=== PATIENT | male | born 1970 | race Caucasian/White ===

== ENCOUNTER 2020-10-19 04:31 | Inpatient (IN) | payer OTHER, SELFPAY ==
[2020-10-19] VITALS (12 sets, daily range): BP systolic 168–203; BP diastolic 85–109; PULSE 81–105; RESP 15–22; TEMP 36.4–37.2; O2SAT 89–98; BMI 35.7
--- NOTE | ~2020-10-19 | US_ITS ---
EXAMINATION: ABDOMINAL ULTRASOUND LIMITED CLINICAL INFORMATION: Right upper quadrant pain. COMPARISON: Same day abdominal and pelvic CT. TECHNIQUE: Real-time imaging of the right upper quadrant abdominal viscera. FINDINGS: PANCREAS: The visualized pancreatic head and body are normal in appearance. The remainder of the pancreas is obscured from visualization by the overlying bowel gas. LIVER: The liver is of increased size and diffuse increased echogenicity without focal lesions nor intrahepatic biliary ductal dilation. GALLBLADDER: Normal. The gallbladder is physiologically distended without evidence of stones, sludge, polyps, wall thickening or pericholecystic fluid. COMMON BILE DUCT: Normal in caliber measuring 0.5 cm in diameter. RIGHT KIDNEY: Normal. No hydronephrosis. No renal calculi or focal parenchymal lesions. The kidney measures 11.8 cm in maximum dimension. FREE FLUID: None. US/US abdomen limited IMPRESSION: Liver of diffuse increased echogenicity without focal lesions. The appearance is nonspecific, but consistent with fatty infiltration. Neither cholelithiasis nor cholecystitis.
--- NOTE | ~2020-10-19 | CT_ITS ---
EXAMINATION: CT ABDOMEN AND PELVIS WITH CONTRAST CLINICAL INFORMATION: Worsening pancreatitis. COMPARISON: None TECHNIQUE: Multidetector volumetric images were obtained from the superior aspect of the liver through the pubic symphysis following administration 85 mL of Omnipaque 350 intravenous contrast. Sagittal and coronal reformatted images were obtained on the technologist's workstation. Oral contrast: No This CT examination was performed using dose optimization techniques as appropriate, variously including the following: *Automated exposure control *Adjustment of mA and/or kV according to patient size (this includes techniques or standardized protocols for targeted exams where dose is matched to indication/reason for exam; i.e. extremities or head) *Use of iterative reconstruction technique DLP: 869 mGy-cm FINDINGS: LUNG BASES: Minimal atelectatic changes are seen in the left lung base. Heart size is normal. LIVER, GALLBLADDER, AND BILIARY TREE: The liver is normal in size, shape, and diffuse hypoattenuation. No focal hepatic lesion or biliary ductal dilatation is present. The gallbladder is unremarkable with no evidence of radiopaque gallstones, gallbladder wall thickening, or obvious pericholecystic inflammatory changes. PANCREAS: The pancreas is normal size and density. There is peripancreatic haziness consistent with acute pancreatitis, most prominent along the head and the body of the pancreas. The common bile duct is dilated at the head of the pancreas measuring 1.4 cm. The proximal pancreatic duct along the body of the pancreas is dilated. There is mild prominence of pancreatic duct but no dilatation seen. There is a hypoechoic 1.2 cm lesion with surrounding inflammatory process, question small loculated cyst on axial image 34/3. There is moderate soft tissue density anterior to the body of the pancreas, likely a focal inflammatory fluid collection on axial image 37/3. There is perisplenic and perihepatic fluid collection. The perihepatic fluid collection has increased and is more prominent along the medial free edge of the right hepatic lobe image 41/3. It appears new. SPLEEN: Fluid surrounding spleen has also increased slightly. ADRENAL GLANDS: Unremarkable KIDNEYS AND URETERS: The kidneys are normal in size, shape, and attenuation. No hydronephrosis, hydroureter, or calculi seen. No perinephric stranding. There is a 1.1 cm cyst lower pole right kidney. BLADDER: Unremarkable GASTROINTESTINAL TRACT: The small and large bowel are unremarkable. The appendix is unremarkable. There is increased fluid in the abdomen, mesentery and in the pelvis. ABDOMINAL WALL: No significant hernia is appreciated. LYMPH NODES: Normal VASCULAR: Unremarkable PELVIC VISCERA: Unremarkable OSSEOUS STRUCTURES: Unremarkable CT/CT abdomen pelvis w con IMPRESSION: Acute pancreatitis. There is interval increased free fluid in the pelvis, perihepatic region and in the mesentery. No suggestion for pancreatic necrosis. Diffuse fatty infiltration of liver without any focal lesion.
--- NOTE | ~2020-10-19 | CT_ITS ---
EXAMINATION: CT ABDOMEN AND PELVIS WITH CONTRAST CLINICAL INFORMATION: Diffuse abdominal pain. COMPARISON: None. TECHNIQUE: Contiguous axial thin section helical images of the abdomen and pelvis were performed following the administration of 85 mL of intravenous Omnipaque 350. The data set was reformatted in the coronal and sagittal planes and reviewed on an independent workstation. DLP: 824 mGy-cm. FINDINGS: The visualized lung bases are clear. The visualized portions of the heart are unremarkable. The liver is of increased size and diffuse decreased attenuation without focal lesions nor intrahepatic biliary ductal dilation. A normal gallbladder is identified. There is no wall thickening or discernible pericholecystic fluid. The spleen and adrenal glands are unremarkable. There is trace free fluid about the distal body and tail of the pancreas along with fat stranding. There is fullness of the pancreatic head, neck, body and tail. There is mild fat stranding noted about the pancreatic head and neck. Both kidneys are of normal size and attenuation without hydronephrosis or nephrolithiasis. Following the administration of IV contrast, prompt symmetric nephrograms are displayed. There is a small amount of free fluid within the right lower quadrant. There is neither mesenteric nor retroperitoneal lymphadenopathy. Normal unopacified loops of small and large bowel are identified. There is a small amount of pelvic free fluid. The urinary bladder is unremarkable. There is neither pelvic nor inguinal lymphadenopathy. Bone windows: Neither sclerotic nor lytic bone lesions are identified. CT/CT abdomen pelvis w con IMPRESSION: Inflammatory changes and trace free fluid about the pancreas suggestive of pancreatitis. Correlate with laboratory values. Hepatomegaly and hepatic steatosis. Small amount of abdominal and pelvic free fluid. Automated exposure control (Care Dose) Adjustment of the mA and/or kv according to patient size (this includes techniques or standardized protocols for targeted exams where dose is matched to indication / reason for exam; i.e. extremities or head).
--- NOTE | 2020-10-19 04:45 | ECG_ITS ---
Test Reason : ABD PAIN Blood Pressure : / mmHG Vent. Rate : 101 BPM Atrial Rate : 101 BPM P-R Int : 118 ms QRS Dur : 086 ms QT Int : 418 ms P-R-T Axes : 066 -05 009 degrees QTc Int : 542 ms Sinus tachycardia with occasional Premature ventricular complexes Prolonged QT Abnormal ECG No previous ECGs available Referred By: Yoly Camargo Electronically Signed By:SCOTT ROCHA
--- NOTE | 2020-10-19 04:52 | ED.ABDPAIN ---
HPI - Abdominal Pain General Chief Complaint: Abdominal Pain Stated Complaint: Abdominal Pain Time Seen by Provider: 10/19/20 04:45 Source: patient Mode of arrival: ambulatory History of Present Illness HPI narrative: This is a 50-year-old male with history of alcohol and drug use who presents after 2 weeks worsening mid abdominal pain with chills, ?sweats?, nausea/vomiting, but continues to have bowel movements and pass flatus and denies any history of abdominal surgeries. Patient states that he ?cannot take the pain anymore . Otherwise, he denies any urinary pain/burning/frequency. Related Data Allergies Allergy/AdvReac Type Severity Reaction Status Date / Time No Known Allergies Allergy Verified 10/19/20 04:55 [No Known Allergies*] Review of Systems Review of Systems Pertinent positives and negatives as stated in HPI 10 point review of systems is otherwise negative. Physical Exam Vital Signs: Vital Signs: Last Vital Signs Temp 98.3 F 10/19/20 05:41 Pulse 105 H 10/19/20 05:58 Resp 17 10/19/20 05:58 BP 174/98 H 10/19/20 05:58 Pulse Ox 97 10/19/20 05:58 Body Mass Index 35.7 VITAL SIGNS: Reviewed. GENERAL: Well developed, well nourished, mild distress, diaphoretic. HEAD: Normocephalic/atraumatic, EYES: PERRLA, EOMI NOSE: Nares patent bilateral OROPHARYNX: no oral lesions noted, posterior pharynx clear NECK: Supple, no adenopathy LUNGS: Normal breath sounds. No adventitious sounds or accessory muscle use. SpO2<98> CARDIOVASCULAR: Regular rate and rhythm without noted murmurs ABDOMEN: Soft, diffuse tenderness without rebound, distended with hypoactive bowel sounds. SKIN: Inspection of the skin reveals no rashes NEUROLOGIC: Alert and oriented x 4. Course Course Course Narrative: This is a 50-year-old male with history and clinical presentation concerning for pancreatitis, strangulated hernia, diverticulitis, and less likely perforation. Although patient is tachycardic and there is a noted leukocytosis this is likely to SIRS response secondary to non infectious inflammatory response. On review of all laboratory investigations patient is presenting with acute pancreatitis and although suspect secondary to alcohol use will rule out biliary although unlikely as alkaline phosphatase is within normal limits. This case was discussed with the inpatient hospitalist who is agreeable for admission. MDM - Abdominal Pain Lab Data Result diagrams: 10/19/20 05:11 10/19/20 05:11 Labs: Lab Results 10/19/20 10/19/20 10/19/20 Range/Units 05:11 05:11 05:11 WBC 13.5 H (4.8-10.8) X10*3/uL RBC 3.79 L (4.60-5.80) X10*6/uL Hgb 11.6 L (14.0-18.0) g/dl Hct 36.1 L (42-52) % MCV 95.3 (80-98) fL MCH 30.6 (27.0-33.0) pg MCHC 32.1 (31.0-36.0) g/dl RDW 14.7 (11.0-16.0) % Plt Count 245 (160-400) X10*3/uL MPV 9.7 (9.4-12.4) fL Immature Gran % (Auto) 0.4 (0.0-0.4) % Neut % (Auto) 83.1 H (45-73) % Lymph % (Auto) 7.6 L (20-40) % [place] % (Auto) 8.5 (2-11) % Eos % (Auto) 0.1 (0-4) % Baso % (Auto) 0.3 (0-2) % Lymph # (Auto) 1.0 L (1.2-4.9) X10*3/uL [place] # (Auto) 1.2 (0.1-1.2) X10*3/uL Eos # (Auto) 0.0 (0.0-0.4) X10*3/uL Baso # (Auto) 0.0 (0.0-0.2) X10*3/uL Abs Immat Gran (auto) 0.06 H (0.00-0.03) X10*3/uL Absolute Neuts (auto) 11.2 H (2.0-8.3) X10*3/uL Absolute Nucleated RBC 0.000 (0.0-0.012) X10*3/uL Nucleated RBC % (auto) 0.0 (0.0-0.2) /100WBC PT (10.8-13.0) SEC INR (0.9-1.1) Sodium 141 (135-145) mmol/L Potassium 4.1 (3.3-5.1) mmol/L Chloride 98 (96-108) mmol/L Carbon Dioxide 29 (22-29) mmol/L Anion Gap 18 (12-20) BUN 12 (9-16) mg/dL Creatinine 0.80 (0.5-1.4) mg/dL Estim Creat Clear Calc 132.1 Estimated GFR > 60 Random Glucose 212 H (60-115) mg/dL Lactic Acid (0.5-2.0) mmol/L Calcium 8.9 (8.4-10.2) mg/dL Magnesium 2.0 (1.6-2.6) mg/dL Total Bilirubin 1.7 H (0.0-1.0) mg/dL AST 115 H (5-37) U/L ALT 79 H (0-40) U/L Alkaline Phosphatase 117 (39-117) U/L Total Protein 8.0 (6.5-8.0) g/dL Albumin 3.7 (3.5-5.0) g/dL Lipase 594 H (8-78) U/L Urine Color Urine Appearance Urine pH (5.0-8.0) Ur Specific [place] (1.005-1.025) Urine Protein (NEG-TRACE) MG/DL Urine Glucose (UA) (NEG) MG/DL Urine Ketones (NEG) MG/DL Urine Blood (NEG) Urine Nitrite (NEG) Ur Leukocyte Esterase (NEG) Urine RBC (0) /HPF Urine WBC (0-4) /HPF Ur Squamous Epith Cells /LPF Amorphous Sediment /LPF Urine Bacteria /LPF Hyaline Casts /LPF Granular Casts /LPF Urine Mucus /LPF Urine Opiates Screen (Not Detect) Ur Barbiturates Screen (Not Detect) Ur Phencyclidine Scrn (Not Detect) Ur Amphetamines Screen (Not Detect) U Benzodiazepines Scrn (Not Detect) Urine Cocaine Screen (Not Detect) U Marijuana (THC) Screen (Not Detect) Ethyl Alcohol < 10 mg/dL COVID-19 ([facility]) (Negative) COVID-19 Clin Com 10/19/20 10/19/20 10/19/20 Range/Units 05:11 05:11 05:46 WBC (4.8-10.8) X10*3/uL RBC (4.60-5.80) X10*6/uL Hgb (14.0-18.0) g/dl Hct (42-52) % MCV (80-98) fL MCH (27.0-33.0) pg MCHC (31.0-36.0) g/dl RDW (11.0-16.0) % Plt Count (160-400) X10*3/uL MPV (9.4-12.4) fL Immature Gran % (Auto) (0.0-0.4) % Neut % (Auto) (45-73) % Lymph % (Auto) (20-40) % [place] % (Auto) (2-11) % Eos % (Auto) (0-4) % Baso % (Auto) (0-2) % Lymph # (Auto) (1.2-4.9) X10*3/uL [place] # (Auto) (0.1-1.2) X10*3/uL Eos # (Auto) (0.0-0.4) X10*3/uL Baso # (Auto) (0.0-0.2) X10*3/uL Abs Immat Gran (auto) (0.00-0.03) X10*3/uL Absolute Neuts (auto) (2.0-8.3) X10*3/uL Absolute Nucleated RBC (0.0-0.012) X10*3/uL Nucleated RBC % (auto) (0.0-0.2) /100WBC PT 18.3 H (10.8-13.0) SEC INR 1.5 H (0.9-1.1) Sodium (135-145) mmol/L Potassium (3.3-5.1) mmol/L Chloride (96-108) mmol/L Carbon Dioxide (22-29) mmol/L Anion Gap (12-20) BUN (9-16) mg/dL Creatinine (0.5-1.4) mg/dL Estim Creat Clear Calc Estimated GFR Random Glucose (60-115) mg/dL Lactic Acid 1.7 (0.5-2.0) mmol/L Calcium (8.4-10.2) mg/dL Magnesium (1.6-2.6) mg/dL Total Bilirubin (0.0-1.0) mg/dL AST (5-37) U/L ALT (0-40) U/L Alkaline Phosphatase (39-117) U/L Total Protein (6.5-8.0) g/dL Albumin (3.5-5.0) g/dL Lipase (8-78) U/L Urine Color Urine Appearance Urine pH (5.0-8.0) Ur Specific [place] (1.005-1.025) Urine Protein (NEG-TRACE) MG/DL Urine Glucose (UA) (NEG) MG/DL Urine Ketones (NEG) MG/DL Urine Blood (NEG) Urine Nitrite (NEG) Ur Leukocyte Esterase (NEG) Urine RBC (0) /HPF Urine WBC (0-4) /HPF Ur Squamous Epith Cells /LPF Amorphous Sediment /LPF Urine Bacteria /LPF Hyaline Casts /LPF Granular Casts /LPF Urine Mucus /LPF Urine Opiates Screen (Not Detect) Ur Barbiturates Screen (Not Detect) Ur Phencyclidine Scrn (Not Detect) Ur Amphetamines Screen (Not Detect) U Benzodiazepines Scrn (Not Detect) Urine Cocaine Screen (Not Detect) U Marijuana (THC) Screen (Not Detect) Ethyl Alcohol mg/dL COVID-19 ([facility]) Negative (Negative) COVID-19 Clin Com See Note 10/19/20 10/19/20 Range/Units 05:46 05:46 WBC (4.8-10.8) X10*3/uL RBC (4.60-5.80) X10*6/uL Hgb (14.0-18.0) g/dl Hct (42-52) % MCV (80-98) fL MCH (27.0-33.0) pg MCHC (31.0-36.0) g/dl RDW (11.0-16.0) % Plt Count (160-400) X10*3/uL MPV (9.4-12.4) fL Immature Gran % (Auto) (0.0-0.4) % Neut % (Auto) (45-73) % Lymph % (Auto) (20-40) % [place] % (Auto) (2-11) % Eos % (Auto) (0-4) % Baso % (Auto) (0-2) % Lymph # (Auto) (1.2-4.9) X10*3/uL [place] # (Auto) (0.1-1.2) X10*3/uL Eos # (Auto) (0.0-0.4) X10*3/uL Baso # (Auto) (0.0-0.2) X10*3/uL Abs Immat Gran (auto) (0.00-0.03) X10*3/uL Absolute Neuts (auto) (2.0-8.3) X10*3/uL Absolute Nucleated RBC (0.0-0.012) X10*3/uL Nucleated RBC % (auto) (0.0-0.2) /100WBC PT (10.8-13.0) SEC INR (0.9-1.1) Sodium (135-145) mmol/L Potassium (3.3-5.1) mmol/L Chloride (96-108) mmol/L Carbon Dioxide (22-29) mmol/L Anion Gap (12-20) BUN (9-16) mg/dL Creatinine (0.5-1.4) mg/dL Estim Creat Clear Calc Estimated GFR Random Glucose (60-115) mg/dL Lactic Acid (0.5-2.0) mmol/L Calcium (8.4-10.2) mg/dL Magnesium (1.6-2.6) mg/dL Total Bilirubin (0.0-1.0) mg/dL AST (5-37) U/L ALT (0-40) U/L Alkaline Phosphatase (39-117) U/L Total Protein (6.5-8.0) g/dL Albumin (3.5-5.0) g/dL Lipase (8-78) U/L Urine Color DARIA Urine Appearance CLOUDY Urine pH 5.5 (5.0-8.0) Ur Specific [place] >= 1.030 H (1.005-1.025) Urine Protein 1+ H (NEG-TRACE) MG/DL Urine Glucose (UA) NEG (NEG) MG/DL Urine Ketones 5 (NEG) MG/DL Urine Blood NEG (NEG) Urine Nitrite NEG (NEG) Ur Leukocyte Esterase NEG (NEG) Urine RBC 1-4 (0) /HPF Urine WBC 1-4 (0-4) /HPF Ur Squamous Epith Cells 2+ /LPF Amorphous Sediment 2+ /LPF Urine Bacteria 2+ /LPF Hyaline Casts 1-4 /LPF Granular Casts 1-4 /LPF Urine Mucus 2+ /LPF Urine Opiates Screen POSITIVE H (Not Detect) Ur Barbiturates Screen Not Detected (Not Detect) Ur Phencyclidine Scrn Not Detected (Not Detect) Ur Amphetamines Screen Not Detected (Not Detect) U Benzodiazepines Scrn Not Detected (Not Detect) Urine Cocaine Screen Not Detected (Not Detect) U Marijuana (THC) Screen Not Detected (Not Detect) Ethyl Alcohol mg/dL COVID-19 ([facility]) (Negative) COVID-19 Clin Com ECG Data Attestation: I personally reviewed and interpreted this ECG as follows: Prior ECG tracings: not available for review Interpretation: Sinus tachycardia, HR-101, no evidence of acute ischemia, NC/QRS within normal limits in QTC is prolonged-542 Discharge Plan Discharge Clinical Impression: NIEVES (obstructive sleep apnea) Pancreatitis Qualifiers: Chronicity: acute Pancreatitis type: unspecified pancreatitis type Acute pancreatitis complication: unspecified Qualified Code(s): K85.90 - Acute pancreatitis without necrosis or infection, unspecified Patient Disposition: Admitted As Inpatient [facility] Past Medical History Source: nursing notes reviewed Social History Social History Advance Directives: No
[2020-10-19 05:18] LABS: MANUAL DIFF FLAG NO
[2020-10-19 05:19] LABS: Basophils Percent Auto 0.3 % (0-2); Eosinophils Percent Auto 0.1 % (0-4); Hematocrit 36.1 % (42-52); Hemoglobin 11.6 g/dl (14.0-18.0); Imm Gran Abs Auto 0.06 X10*3/uL (0.00-0.03); Imm Gran Pct Auto 0.4 % (0.0-0.4); Lymphocytes Percent Auto 7.6 % (20-40); Mean Corpuscular HGB Conc 32.1 g/dl (31.0-36.0); Mean Corpuscular Hemoglobin 30.6 pg (27.0-33.0); Mean Corpuscular Volume 95.3 fL (80-98); Mean Platelet Volume 9.7 fL (9.4-12.4); Monocytes Absolute Auto 1.2 X10*3/uL (0.1-1.2); Monocytes Percent Auto 8.5 % (2-11); Neutrophils Absolute Auto 11.2 X10*3/uL (2.0-8.3); Neutrophils Percent Auto 83.1 % (45-73); Platelet Count 245 X10*3/uL (160-400); Red Blood Count 3.79 X10*6/uL (4.60-5.80); Red Cell Distribution Width 14.7 % (11.0-16.0); White Blood Count 13.5 X10*3/uL (4.8-10.8)
[2020-10-19] MEDS: 0.9 % Sodium Chloride 1,000 ML 999 ML IV (05:23)
[2020-10-19 05:25] LABS: INTERNATIONAL NORM RATIO 1.5 (0.9-1.1); Prothrombin Time 18.3 SEC (10.8-13.0)
[2020-10-19 05:35] LABS: Lactic Acid 1.7 mmol/L (0.5-2.0)
[2020-10-19] MEDS: fentaNYL citrate/PF 100 MCG/2 ML VIAL 25 MCG IVPUSH (05:35)
[2020-10-19] MEDS: LORazepam 2 MG/ML VIAL 1 MG IVPUSH (05:35)
[2020-10-19 05:36] LABS: Ethanol < 10 mg/dL
[2020-10-19 05:42] LABS: Alanine Aminotransferase 79 U/L (0-40); Albumin Level 3.7 g/dL (3.5-5.0); Alkaline Phosphatase 117 U/L (39-117); Anion Gap 18 (12-20); Aspartate Amino Transferase 115 U/L (5-37); Bilirubin Total 1.7 mg/dL (0.0-1.0); Blood Urea Nitrogen 12 mg/dL (9-16); Calcium 8.9 mg/dL (8.4-10.2); Carbon Dioxide 29 mmol/L (22-29); Chloride 98 mmol/L (96-108); Creatinine Clr Calc Pharmacy 132.1; Estimated Glomerular Filt Rate > 60; Glucose Random 212 mg/dL (60-115); Potassium 4.1 mmol/L (3.3-5.1); Sodium 141 mmol/L (135-145)
[2020-10-19 05:56] LABS: Glucose Urine UA NEG (NEG); Leukocyte Esterase Urine NEG (NEG); PH 5.5 (5.0-8.0); Specific Gravity - Urine >= 1.030 (1.005-1.025); Urine Blood NEG (NEG); Urine Ketones 5 MG/DL (NEG); Urine Protein 1+ MG/DL (NEG-TRACE)
[2020-10-19 06:05] LABS: Appearance Urine CLOUDY; Color Urine AMBER; Nitrite Urine NEG (NEG)
[2020-10-19 06:06] LABS: Bacteria Urine 2+ /LPF; Mucus Urine 2+ /LPF; Squamous Epithelial Cell Urine 2+ /LPF
[2020-10-19 06:07] LABS: Amorphous Sediment Urine 2+ /LPF; COVID-19 Test Negative (Negative); IDNOW Serial# 9DD0AD1C
[2020-10-19 06:11] LABS: Lipase 594 U/L (8-78)
[2020-10-19 06:17] LABS: Amphetamine Screen Urine Not Detected (Not Detect); Barbiturates, Urine Not Detected (Not Detect); Benzodiazepines Screen Urine Not Detected (Not Detect); Cannabinoid Screen Urine Not Detected (Not Detect); Cocaine Screen Urine Not Detected (Not Detect); Opiate Screen Urine POSITIVE (Not Detect); Phencyclidine Screen Urine Not Detected (Not Detect)
[2020-10-19] MEDS: 0.9 % Sodium Chloride 2,000 ML 999 ML IV (06:47)
--- NOTE | 2020-10-19 07:05 | PC.NURSE ---
patient in bed resting. patient aware he is admitted. wants to continue resting. A and O x3, unlabored breathing, skin warm and dry.
[2020-10-19] MEDS: HYDROmorphone HCl 1 MG/ML SYRINGE IVPUSH ×2 (07:40→08:03)
[2020-10-19] MEDS: ondansetron HCL 4 MG/2 ML VIAL IVPUSH ×2 (07:41→21:12)
[2020-10-19] MEDS: Ketorolac Tromethamine 30 MG/ML VIAL IVPUSH (08:03)
[2020-10-19] MEDS: PHENobarbitaL sodium 130 MG/ML VIAL 218 MG IM (08:46)
[2020-10-19] MEDS: Dextrose 5 % and 0.45 % NaCl 1,000 ML 100 ML IVCONT ×2 (08:46→17:40)
[2020-10-19] MEDS: Enoxaparin Sodium 40 MG/0.4 ML SYRINGE SUBCUT (10:34)
[2020-10-19] MEDS: PHENobarbitaL sodium 130 MG/ML VIAL 164 MG IM ×2 (11:42→14:30)
--- NOTE | 2020-10-19 12:42 | MHC.CM.PN ---
Attempted to meet with patient in regards to discharge planning. Patient sleeping. No family present. Will attempt to meet again. Continue to monitor for d/c needs.
[2020-10-19] MEDS: HYDROmorphone HCl 0.5 MG/0.5 ML SYRINGE 1 MG IVPUSH ×3 (13:26→21:12)
[2020-10-19] MEDS: amLODIPine Besylate 5 MG TABLET PO (16:41)
--- NOTE | 2020-10-19 19:29 | HP_ITS ---
DATE OF SERVICE: 10/19/2020 CHIEF COMPLAINT: Abdominal pain. HISTORY OF PRESENT ILLNESS: I reviewed the available records and spoke to the patient, reviewed emergency room records. He is a 50-year-old male with history of alcohol dependency and drinks rather heavily. He says he drinks about 20 nips a day, and presented to the emergency room with abdominal pain that has been ongoing for nearly 10 days and has been escalating. He rates the pain as very severe in the epigastrium area and is associated with some nausea, but no vomiting. The pain became excruciating, prompting him to show up at the emergency room and was noted to have acute pancreatitis on the basis of elevated lipase. During the stay in the hospital also, he started having signs consistent with alcohol withdrawal with psychomotor agitation. He also had a CAT scan. He had a CAT scan of the abdomen and pelvis, which was suggestive of acute pancreatitis as well. ALLERGIES: NO KNOWN ALLERGIES. PAST MEDICAL HISTORY: He has prior history of NIEVES, obesity, and GERD. SOCIAL HISTORY: He relates that he does drink alcohol and also uses substance including snorting heroin and obviously also smokes marijuana and tobacco. FAMILY HISTORY: He relates no family history related to his present condition. He denied any family history of coronary artery disease, malignancy, or other. PAST SURGICAL HISTORY: Really none. REVIEW OF SYSTEMS: CONSTITUTIONAL: No fever. RESPIRATORY: No shortness of breath. GI: Abdominal pain with nausea as stated in the HPI. NEUROLOGIC: No neurological changes. All other systems are reviewed and negative. HOME MEDICATIONS: Include: 1. Albuterol q.6h p.r.n. for shortness of breath. 2. Omeprazole daily, no dose available. PHYSICAL EXAMINATION: VITAL SIGNS: At the time of this evaluation, his blood pressure is 188/91, pulse 84, respirations 16, O2 saturation 98% on room air. GENERAL: He is awake, alert, and oriented. He seemed very uncomfortable at the time of my evaluation, writhing in the bed with abdominal pain and very uncomfortable. HEENT: His pupils are otherwise reactive. He has no jaundice. NECK: Supple. No lymphadenopathy. CARDIOVASCULAR: Regular rate, S1 and S2. LUNGS: Clear. No rales. No wheezes. ABDOMEN: Protuberant. He does have significant tenderness in the epigastrium region and voluntary guarding. No peritoneal signs. EXTREMITIES: No edema. SKIN: No rash. NEURO: He has no focal deficit. Cranial nerves II through XII is intact. LABORATORY DATA: WBC was 13.5, hemoglobin 11.6, hematocrit 36.1, platelets 246. His INR was 1.5, sodium 141, potassium 4.1, chloride 98, carbon dioxide 29, BUN 12, creatinine 0.8. Random glucose was 212. Lactic acid 1.7. Magnesium 2. Total bilirubin 1.7, AST 115, ALT 79, alkaline phosphatase of 117, total protein 8. DIAGNOSTIC DATA: CT abdomen and pelvis showed inflammatory changes and trace fluid about the pancreas suggestive of acute pancreatitis. He has hepatomegaly and hepatosteatosis. Small amount of abdominopelvic fluid. Ultrasound of the abdomen showed liver of diffuse increased echogenic without focal lesion. The appearance is nonspecific, but consistent with fatty infiltrate, neither cholelithiasis or cholecystitis is demonstrated. ASSESSMENT: This is a 50-year-old male with alcohol dependence who presented with acute alcoholic pancreatitis and early alcohol withdrawal. PLAN: 1. For the pancreatitis, n.p.o., hydration, IV Dilaudid for pain, and follow clinically if worsening. Ask GI or Surgery to see him. 2. Alcohol dependency/alcohol withdrawal. Start phenobarbital protocol. Add supplemental folic acid and thiamine and should have a team assessment prior to discharge. I did counseling specialist him on complete abstinence. 3. Obesity. Should exercise and lose weight as obesity could affect his overall health including metabolic syndrome, which it appeared that he does have already. 4. Fatty liver due to obesity and obviously alcohol with associated transaminitis and hyperbilirubinemia, all due to alcohol and obesity. 5. GERD, on omeprazole. 6. Elevated blood pressure. He probably had undiagnosed or untreated hypertension. His blood pressure is fairly high and therefore starting Norvasc 5 mg daily and will adjust as needed. 7. For DVT prophylaxis, Lovenox. MD ELAYNE Flores/FABIAN / [phone]
[2020-10-19] MEDS: PHENobarbitaL 15 MG TABLET 45 MG PO (20:06)
[2020-10-20] MEDS: hydrOXYzine HCL 25 MG TABLET PO ×3 (00:38→18:51)
[2020-10-20] MEDS: HYDROmorphone HCl 0.5 MG/0.5 ML SYRINGE 1 MG IVPUSH ×2 (01:03→06:15)
[2020-10-20] MEDS: HYDROmorphone HCl 1 MG/ML SYRINGE IVPUSH ×2 (02:26→12:55)
[2020-10-20] MEDS: PHENobarbitaL sodium 65 MG/ML VIAL IM (02:46)
[2020-10-20] MEDS: Dextrose 5 % and 0.45 % NaCl 1,000 ML 100 ML IVCONT (02:50)
--- NOTE | 2020-10-20 02:58 | PC.NURSE ---
pt very restless,aggitated complaining of a lot of abd pain.medicated at 2100 and 0100 with dilaudid 1mg with no effect.medicated with atarax 25mg po at 1240. notified.ordered extra dose dilaudid 1mg iv given at 0225 and extra dose phenobarbital 65mg im given at 0245.02 2L applied.o2sats drop into 80 s on ra.camera in room.resting in bed.
[2020-10-20] MEDS: ondansetron HCL 4 MG/2 ML VIAL IVPUSH (05:09)
[2020-10-20 08:00] VITALS: BP 174/97; PULSE 112; RESP 19; TEMP 37.4; O2SAT 92
--- NOTE | 2020-10-20 08:15 | HO.PM.IMPN ---
Subjective Subjective Date of Service: 10/20/20 Interval History: Seen in f/u for acute pancreatitis, alcohol withdrawal. Still has 10/10 pain and less agitated and no tremulous Review of Systems Gen: no fever Resp: no sob, no cough CV: no chest, no GUZMÁN, no leg edema GI: N0 n/v, + abd pain Neuro: No confusion Physical Exam Vital Signs: Vital Signs: Last Vital Signs Temp 98.9 F 10/19/20 23:19 Pulse 95 10/19/20 23:19 Resp 20 10/19/20 23:19 BP 173/91 H 10/19/20 23:19 Pulse Ox 93 10/19/20 23:19 Body Mass Index 35.7 General: AO X 3, no acute distress Resp: CTA bilateral CVS: S1,S2,RRR GI: +BS, the gastric tenderness, no distention Skin: No rash Neuro: motor grossly intact Psych: appropriate affect Objective Data Current Medications Generic Name Dose Route Start Last Admin Trade Name Freq PRN Reason Stop Dose Admin Amlodipine Besylate 5 mg 10/19/20 16:20 10/19/20 16:41 Amlodipine Besylate 5 Mg Tablet PO 5 mg DAILY [facility] Administration Protocol Enoxaparin Sodium 40 mg 10/19/20 10:00 10/19/20 10:34 Enoxaparin Sodium 40 Mg/0.4 Ml Syringe SUBCUT 40 mg Q24H [facility] Administration Hydromorphone HCl 1 mg 10/19/20 08:27 10/20/20 06:15 Hydromorphone Hcl 0.5 Mg/0.5 Ml Syringe IVPUSH 1 mg Q4H PRN Administration Pain, Severe (Pain Scale 7-10) Hydroxyzine HCl 25 mg 10/19/20 16:15 10/20/20 07:18 Hydroxyzine Hcl 25 Mg Tablet PO 25 mg Q6H PRN Administration Anxiety Dextrose/Sodium Chloride 1,000 mls @ 100 mls/hr 10/19/20 08:27 10/20/20 02:50 D51/2ns IVCONT 100 mls/hr .Q10H [facility] Administration Medication 1 each 10/19/20 09:00 No Benzodiazepines MISCELLANE DAILY [facility] Ondansetron HCl 4 mg 10/19/20 18:23 10/20/20 05:09 Ondansetron Hcl 4 Mg/2 Ml Vial IVPUSH 4 mg Q8H PRN Administration Nausea and Vomiting Phenobarbital 45 mg 10/19/20 21:00 10/19/20 20:06 Phenobarbital 15 Mg Tablet PO 10/21/20 09:01 45 mg BID [facility] Administration Phenobarbital 15 mg 10/21/20 21:00 Phenobarbital 15 Mg Tablet PO 10/23/20 09:01 BID [facility] Phenobarbital 15 mg 10/24/20 09:00 Phenobarbital 15 Mg Tablet PO 10/25/20 09:01 DAILY [facility] Sodium Chloride 3 ml 10/19/20 16:00 10/20/20 07:13 0.9 % Sodium Chloride Flush 3 Ml Syringe IVFLUSH Not Given QSHIFT [facility] Labs CBC & Chem 7: 10/19/20 05:11 10/19/20 05:11 Microbiology Microbiology Results: Microbiology 10/19/20 05:46 Blood - Venous Blood Culture - Preliminary No growth after 24 hours. 10/19/20 05:11 Blood - Venous Blood Culture - Preliminary No growth after 24 hours. Assessment and Plan (1) Acute pancreatitis: Status: Acute (2) Alcohol withdrawal: Status: Acute Assessment and Plan: 50-year-old male with alcohol dependence who presented with acute alcoholic pancreatitis and early alcohol withdrawal. PLAN: 1. Acute pancreatitis, n.p.o., hydration, IV Dilaudid for pain, and follow clinically if worsening, ask GI or Surgery to see him. 2. Alcohol dependency/alcohol withdrawal. -Continue phenobarbital protocol. - Add supplemental folic acid and thiamine and should have a CARE team assessment prior to discharge. -I did financial aid counselor him on complete abstinence. 3. Obesity. Should exercise and lose weight as obesity could affect his overall health including metabolic syndrome, which it appeared that he does have already. 4. Fatty liver due to obesity and obviously alcohol with associated transaminitis and hyperbilirubinemia, all due to alcohol and obesity. 5. GERD, on omeprazole. 6. Elevated blood pressure. He probably had undiagnosed or untreated hypertension. His blood pressure is fairly high and therefore starting Norvasc 5 mg daily and will adjust as needed. Add Lisinopril 10 daily 7.Opioid dependence--Atarax, Clonidine PRN 7. For DVT prophylaxis, Lovenox.
[2020-10-20] MEDS: PHENobarbitaL 15 MG TABLET 45 MG PO ×2 (09:08→21:07)
[2020-10-20] MEDS: amLODIPine Besylate 5 MG TABLET PO (09:09)
[2020-10-20] MEDS: Thiamine HCL 100 MG TABLET PO (09:09)
[2020-10-20] MEDS: Folic Acid 1 MG TABLET PO (09:09)
[2020-10-20] MEDS: Enoxaparin Sodium 40 MG/0.4 ML SYRINGE SUBCUT (09:09)
[2020-10-20] MEDS: lisinopriL 10 MG TABLET PO (09:09)
[2020-10-20] MEDS: HYDROmorphone HCl 0.5 MG/0.5 ML SYRINGE 1.5 MG IVPUSH ×3 (10:28→21:11)
--- NOTE | 2020-10-20 12:35 | MHC.CM.PN ---
CASE MANAGEMENT ATTEMPTED TO MEET WITH PATIENT FOR ASSESSMENT. PATIENT IS UNABLE TO FOCUS ON CONVERSATION ,AND CONTINUES TO STATE I NEED MEDICINE. I NEED WATER WELL A DESIRE TO BE LEFT ALONE. HE DOES VERIFY HIS NAME, DATE OF , AND THAT HE HAS NO PCP. CONTACT CARD FOR CASE MANAGEMENT LEFT WITH PATIENT AND HE IS AWARE THAT HE CAN ASK FOR RETURN ONCE HE IS FEELING BETTER. PER PHYSICIAN ROUNDS, PLAN IS TO DC OVER THE WEEKEND.
[2020-10-20] MEDS: cloNIDine HCL 0.1 MG TABLET PO (12:48)
[2020-10-20 13:52] LABS: Anion Gap 15 (12-20); Blood Urea Nitrogen 16 mg/dL (9-16); Calcium 8.1 mg/dL (8.4-10.2); Carbon Dioxide 30 mmol/L (22-29); Chloride 94 mmol/L (96-108); Creatinine Clr Calc Pharmacy 148.9; Estimated Glomerular Filt Rate > 60; Glucose Random 141 mg/dL (60-115); Potassium 3.6 mmol/L (3.3-5.1); Sodium 135 mmol/L (135-145)
[2020-10-20 14:10] LABS: Lipase 698 U/L (8-78)
[2020-10-20 15:29] VITALS: BP 168/80; PULSE 93; RESP 16; TEMP 36.5; O2SAT 95
[2020-10-20] MEDS: 0.9 % Sodium Chloride Flush 3 ML SYRINGE IVFLUSH (17:50)
[2020-10-21] VITALS (8 sets, daily range): BP systolic 160–192; BP diastolic 89–120; PULSE 88–113; RESP 16–20; TEMP 36.6–37.1; O2SAT 94–99
[2020-10-21] MEDS: diphenhydrAMINE HCL 50 MG/ML VIAL 25 MG IVPUSH (00:10)
[2020-10-21] MEDS: 0.9 % Sodium Chloride Flush 3 ML SYRINGE IVFLUSH ×4 (00:11→20:10)
[2020-10-21] MEDS: HYDROmorphone HCl 0.5 MG/0.5 ML SYRINGE 1.5 MG IVPUSH ×2 (01:12→05:12)
[2020-10-21] MEDS: ondansetron HCL 4 MG/2 ML VIAL IVPUSH ×2 (01:31→11:54)
[2020-10-21] MEDS: cloNIDine HCL 0.1 MG TABLET PO ×3 (02:26→23:40)
[2020-10-21] MEDS: hydrOXYzine HCL 25 MG TABLET PO ×2 (03:26→14:52)
--- NOTE | 2020-10-21 05:16 | PC.NURSE ---
Addendum entered by Grace White RN 10/21/20 06:28: MD ON DUTY WAS MADE AWARE THAT PATIENT CONTINUES TO DECLINE IVF TO BE RESTARTED THROUGHOUT THIS 8 HOUR SHIFT Original Note: PATIENT IS A 50 YEAR OLD MALE ADMITTED FOR ACUTE PANCREATITIS ON 10/19/20. PATIENT NOTED TO BE VERY RESTLESS, GETTING OOB FREQUENTLY, UNABLE TO SLEEP, DECLINING IVF SINCE PREVIOUS SHIFT, AND ALSO NOTED IV CATHETER OUT. NEW IV SITE TO RIGHT FOREARM BY RN COWORKER, BUT CONTINUES TO DECLINE IVF, NOTED PT VERY IMPULSIVE AND GETTING TANGLED. VERY UPSET ABOUT BEING VERY THIRSTY AND IN PAIN. HOSPITALIST ON DUTY ORDERED A CLEAR LIQUID DIET AND PT GIVEN AND REQUESTED JAKOB GOKUL AND JELLO AND TOLERATTED JUST OKAY. MEDICATED WITH DILAUDID ORDERED FOR 10 ABD PAIN, ASLO IVP BENADRYL ORDERED FROM PREVIOUS SHIFT THAT HE HAD DECLINED, ZOFRAN, CLONIDINE, AND ATARAX. DESPITE MEDICATIONS, BEVERAGE, AMBULATION , AND WARM BLANKET TO ABD, PT REMAINED RESTLESS, OOB, BR, AND MOANINGTHROUGHT THE SHIFT. NOTED TO GO TO BED AND TAKE QUICK 10 MINUTE NAPS AT BEST. MONITORED VERY CLOSE, BED ALARM ON, TELESITTER IN USE. PT NOT USIG CALL [facility] DESPITE NUMEROUS REINFORCEMENTS TO CALL BEFORE GETTING OOB. DILAUDID NEXT GIVEN 0515 AND SOON GIVEN STARTS ASKING RIGHT AWAY FOR WHAT ELSE CAN I HAVE . PATIENT THANKFUL BUT UNSETTLED, WILL CONTINUE TO MONITOR CLOSELY.
--- NOTE | 2020-10-21 08:24 | HO.PM.IMPN ---
Subjective Subjective Date of Service: 10/21/20 Interval History: Seen in f/u for acute pancreatitis, alcohol withdrawal. He is still having excruciating pain of or 10/10. And is not able to sleep as a result of the pain blood pressure is elevated. No signs of alcohol withdrawal at this time. Physical Exam Vital Signs: Vital Signs: Last Vital Signs Temp 98 F 10/21/20 07:19 Pulse 88 10/21/20 07:19 Resp 20 10/21/20 07:19 BP 190/97 H 10/21/20 07:19 Pulse Ox 96 10/21/20 07:19 Body Mass Index 35.7 General: AO X 3, in some distress Resp: CTA bilateral CVS: S1,S2,RRR GI: +BS,, protruberant, lower abdominal tenderness, has a bruise as a result of Lovenox Skin: No rash Neuro: motor grossly intact Psych: appropriate affect Objective Data Current Medications Generic Name Dose Route Start Last Admin Trade Name Freq PRN Reason Stop Dose Admin Amlodipine Besylate 5 mg 10/19/20 16:20 10/20/20 09:09 Amlodipine Besylate 5 Mg Tablet PO 5 mg DAILY [facility] Administration Protocol Clonidine HCl 0.1 mg 10/20/20 12:35 10/21/20 02:26 Clonidine Hcl 0.1 Mg Tablet PO 0.1 mg Q6H PRN Administration Opiate Withdrawal Protocol Enoxaparin Sodium 40 mg 10/19/20 10:00 10/20/20 09:09 Enoxaparin Sodium 40 Mg/0.4 Ml Syringe SUBCUT 40 mg Q24H LUCHO Administration Folic Acid 1 mg 10/20/20 09:00 10/20/20 09:09 Folic Acid 1 Mg Tablet PO 10/22/20 09:01 1 mg DAILY [facility] Administration Hydromorphone HCl 2 mg 10/21/20 08:23 Hydromorphone Hcl 0.5 Mg/0.5 Ml Syringe IVPUSH Q3H PRN Pain, Severe (Pain Scale 7-10) Hydroxyzine HCl 25 mg 10/19/20 16:15 10/21/20 03:26 Hydroxyzine Hcl 25 Mg Tablet PO 25 mg Q6H PRN Administration Anxiety Dextrose/Sodium Chloride 1,000 mls @ 100 mls/hr 10/19/20 08:27 10/21/20 01:33 D51/2ns IVCONT Not Given .Q10H [facility] Lisinopril 10 mg 10/20/20 09:00 10/20/20 09:09 Lisinopril 10 Mg Tablet PO 10 mg DAILY [facility] Administration Protocol Medication 1 each 10/19/20 09:00 No Benzodiazepines MISCELLANE DAILY [facility] Ondansetron HCl 4 mg 10/19/20 18:23 10/21/20 01:31 Ondansetron Hcl 4 Mg/2 Ml Vial IVPUSH 4 mg Q8H PRN Administration Nausea and Vomiting Phenobarbital 45 mg 10/19/20 21:00 10/20/20 21:07 Phenobarbital 15 Mg Tablet PO 10/21/20 09:01 45 mg BID [facility]CHO Administration Phenobarbital 15 mg 10/21/20 21:00 Phenobarbital 15 Mg Tablet PO 10/23/20 09:01 BID [facility] Phenobarbital 15 mg 10/24/20 09:00 Phenobarbital 15 Mg Tablet PO 10/25/20 09:01 DAILY [facility] Sodium Chloride 3 ml 10/19/20 16:00 10/21/20 00:11 0.9 % Sodium Chloride Flush 3 Ml Syringe IVFLUSH 3 ml QSHIFT [facility] Administration Thiamine HCl 100 mg 10/20/20 09:00 10/20/20 09:09 Thiamine Hcl 100 Mg Tablet PO 10/22/20 09:01 100 mg DAILY [facility] Administration Labs CBC & Chem 7: 10/19/20 05:11 10/20/20 13:04 Microbiology Microbiology Results: Microbiology 10/19/20 05:46 Blood - Venous Blood Culture - Preliminary No growth after 48 hours. 10/19/20 05:11 Blood - Venous Blood Culture - Preliminary No growth after 48 hours. Assessment and Plan (1) Acute pancreatitis: Status: Acute (2) Alcohol withdrawal: Status: Acute Assessment and Plan: 50-year-old male with alcohol dependence who presented with acute alcoholic pancreatitis and early alcohol withdrawal. PLAN: 1. Acute pancreatitis, n.p.o., hydration, increased IV Dilaudid for pain, and follow clinically. Due to persistence of pain, bowel do another abdominal CT scan, they GI consultation. Keep NPO, IVF 2. Alcohol dependency/alcohol withdrawal. -Continue phenobarbital protocol. - supplemental folic acid and thiamine and should have a CARE team assessment prior to discharge. -I did relationship counselor him on complete abstinence. 3. Obesity. Should exercise and lose weight as obesity could affect his overall health including metabolic syndrome, which it appeared that he does have already. 4. Fatty liver due to obesity and obviously alcohol with associated transaminitis and hyperbilirubinemia, all due to alcohol and obesity. 5. GERD, on omeprazole. 6. Elevated blood pressure. He probably had undiagnosed or untreated hypertension. His blood pressure is fairly high and therefore starting Norvasc 5 mg daily and will adjust as needed. Increase Lisinopril to 20, and continue clonidine, PRN hydralazine 7.Opioid dependence--Atarax, Clonidine PRN 7. For DVT prophylaxis, Lovenox.
[2020-10-21] MEDS: Thiamine HCL 100 MG TABLET PO (08:27)
[2020-10-21] MEDS: lisinopriL 10 MG TABLET PO (08:27)
[2020-10-21] MEDS: Folic Acid 1 MG TABLET PO (08:27)
[2020-10-21] MEDS: PHENobarbitaL 15 MG TABLET 45 MG PO (08:27)
[2020-10-21] MEDS: Enoxaparin Sodium 40 MG/0.4 ML SYRINGE SUBCUT (08:28)
[2020-10-21] MEDS: amLODIPine Besylate 5 MG TABLET PO (08:29)
[2020-10-21] MEDS: HYDROmorphone HCl 0.5 MG/0.5 ML SYRINGE 2 MG IVPUSH ×5 (08:41→23:39)
[2020-10-21] MEDS: lisinopriL 20 MG TABLET PO (11:42)
[2020-10-21] MEDS: iohexoL 350 MG/ML 75 ML INFUS..BTL IV (12:41)
[2020-10-21] MEDS: PHENobarbitaL 15 MG TABLET PO (20:07)
[2020-10-22] VITALS (15 sets, daily range): BP systolic 114–193; BP diastolic 81–108; PULSE 99–126; RESP 17–20; TEMP 36.1–37.1; O2SAT 93–94
[2020-10-22] MEDS: hydrALAZINE HCl 20 MG/ML VIAL 5 MG IVPUSH (01:21)
[2020-10-22] MEDS: ondansetron HCL 4 MG/2 ML VIAL IVPUSH ×3 (01:22→18:05)
--- NOTE | 2020-10-22 02:28 | PC.NURSE ---
pt BP was 192/108. Md was notified. MD ordered 5 mg Hydralazine. PT BP was recorded every 10 mins for 1 hr . Pt final BP was 165/97
[2020-10-22] MEDS: HYDROmorphone HCl 0.5 MG/0.5 ML SYRINGE 2 MG IVPUSH ×6 (04:24→22:04)
[2020-10-22] MEDS: lisinopriL 20 MG TABLET PO (07:40)
[2020-10-22] MEDS: Folic Acid 1 MG TABLET PO (07:41)
[2020-10-22] MEDS: cloNIDine HCL 0.1 MG TABLET PO ×2 (07:41→14:28)
[2020-10-22] MEDS: 0.9 % Sodium Chloride Flush 3 ML SYRINGE IVFLUSH (07:41)
[2020-10-22] MEDS: PHENobarbitaL 15 MG TABLET PO ×2 (07:41→20:14)
[2020-10-22] MEDS: amLODIPine Besylate 5 MG TABLET PO (07:41)
[2020-10-22] MEDS: Thiamine HCL 100 MG TABLET PO (07:42)
[2020-10-22] MEDS: Lactated Ringers 1,000 ML 125 ML IVCONT ×2 (08:47→18:04)
[2020-10-22] MEDS: hydrOXYzine HCL 25 MG TABLET PO ×2 (09:39→22:03)
[2020-10-22] MEDS: Enoxaparin Sodium 40 MG/0.4 ML SYRINGE SUBCUT (09:39)
--- NOTE | 2020-10-22 14:52 | P.PNIM_ITS ---
Subjective Subjective Date of Service: 10/22/20 Interval History: ongoing abd pain/nausea provoked by clear liquid oral intake Physical Exam Vital Signs: Vital Signs: Last Vital Signs Temp 97.0 F 10/22/20 07:37 Pulse 118 H 10/22/20 07:37 Resp 18 10/22/20 07:37 BP 154/101 H 10/22/20 07:37 Pulse Ox 93 10/22/20 07:37 Body Mass Index 35.7 Gen: in pain HEENT: sclera anicteric, moist mucus membranes Neck: supple Lungs: clear to auscultation bilaterally Heart: regular rate and rhythm, no murmurs Abd: soft, tender epigastrium/periumbilical Ext: no edema Skin: warm/well-perfused Neuro: alert and oriented x3, no focal findings Psych: appropriate affect Objective Data Current Medications Generic Name Dose Route Start Last Admin Trade Name Freq PRN Reason Stop Dose Admin Amlodipine Besylate 5 mg 10/19/20 16:20 10/22/20 07:41 Amlodipine Besylate 5 Mg Tablet PO 5 mg DAILY [facility] Administration Protocol Clonidine HCl 0.1 mg 10/20/20 12:35 10/22/20 14:28 Clonidine Hcl 0.1 Mg Tablet PO 0.1 mg Q6H PRN Administration Opiate Withdrawal Protocol Enoxaparin Sodium 40 mg 10/19/20 10:00 10/22/20 09:39 Enoxaparin Sodium 40 Mg/0.4 Ml Syringe SUBCUT 40 mg Q24H [facility] Administration Hydromorphone HCl 2 mg 10/21/20 08:23 10/22/20 14:29 Hydromorphone Hcl 0.5 Mg/0.5 Ml Syringe IVPUSH 2 mg Q3H PRN Administration Pain, Severe (Pain Scale 7-10) Hydroxyzine HCl 25 mg 10/19/20 16:15 10/22/20 09:39 Hydroxyzine Hcl 25 Mg Tablet PO 25 mg Q6H PRN Administration Anxiety Lactated Ringer's 1,000 mls @ 125 mls/hr 10/22/20 08:15 10/22/20 08:47 Lr IVCONT 125 mls/hr .Q8H [facility] Administration Lisinopril 20 mg 10/21/20 09:00 10/22/20 07:40 Lisinopril 20 Mg Tablet PO 20 mg DAILY [facility] Administration Protocol Medication 1 each 10/19/20 09:00 No Benzodiazepines MISCELLANE DAILY LUCHO Nicotine Polacrilex 4 mg 10/21/20 22:54 10/21/20 23:40 Nicotine Polacrilex 4 Mg Lozenge BUCCAL 4 mg Q2H PRN Administration Nicotine Cravings Ondansetron HCl 4 mg 10/19/20 18:23 10/22/20 09:39 Ondansetron Hcl 4 Mg/2 Ml Vial IVPUSH 4 mg Q8H PRN Administration Nausea and Vomiting Phenobarbital 15 mg 10/21/20 21:00 10/22/20 07:41 Phenobarbital 15 Mg Tablet PO 10/23/20 09:01 15 mg BID LUCHO Administration Phenobarbital 15 mg 10/24/20 09:00 Phenobarbital 15 Mg Tablet PO 10/25/20 09:01 DAILY [facility] Sodium Chloride 3 ml 10/19/20 16:00 10/22/20 07:41 0.9 % Sodium Chloride Flush 3 Ml Syringe IVFLUSH 3 ml QSHIFT [facility] Administration Labs CBC & Chem 7: 10/19/20 05:11 10/20/20 13:04 Labs: Impressions Abdomen/Pelvis CT 10/21/20 12:20 IMPRESSION: Acute pancreatitis. There is interval increased free fluid in the pelvis, perihepatic region and in the mesentery. No suggestion for pancreatic necrosis. Diffuse fatty infiltration of liver without any focal lesion. Microbiology Microbiology Results: Microbiology 10/19/20 05:46 Blood - Venous Blood Culture - Preliminary No growth after 48 hours. 10/19/20 05:11 Blood - Venous Blood Culture - Preliminary No growth after 48 hours. Assessment and Plan (1) Acute pancreatitis: Status: Acute (2) Alcohol withdrawal: Status: Acute Assessment and Plan: hospital d#4 50yo M with EtOH + opioid abuse admitted for acute pancreatitis + EtOH withd harpreet # acute pancreatitis - continue IV fluids, bowel rest, prn IV hydromorphone, GI consultation # EtOH dependence/withdrawal - continue phenobarbital taper, folate, thiamine - CARE team consultation to encourage abstinence # opioid dependence/withdrawal - prn hydroxyzine + clonidine # steatohepatitis - likely EtOH + obesity # HTN - amlodipine + lisinopril # obesity - weight loss counseled # GERD - continue omeprazole # VTE ppx - LMWH
[2020-10-23] VITALS: BP 129/88; PULSE 52; RESP 16; TEMP 36.3; O2SAT 92
[2020-10-23] MEDS: HYDROmorphone HCl 0.5 MG/0.5 ML SYRINGE 2 MG IVPUSH ×3 (01:11→09:32)
[2020-10-23] MEDS: Lactated Ringers 1,000 ML 125 ML IVCONT ×2 (01:12→09:41)
[2020-10-23 07:16] LABS: Basophils Percent Auto 0.2 % (0-2); Eosinophils Absolute Auto 0.1 X10*3/uL (0.0-0.4); Eosinophils Percent Auto 0.3 % (0-4); Hematocrit 36.2 % (42-52); Hemoglobin 12.3 g/dl (14.0-18.0); Imm Gran Abs Auto 0.09 X10*3/uL (0.00-0.03); Imm Gran Pct Auto 0.5 % (0.0-0.4); Lymphocytes Percent Auto 10.2 % (20-40); MANUAL DIFF FLAG SCAN; Mean Corpuscular Hemoglobin 31.5 pg (27.0-33.0); Mean Corpuscular Volume 92.8 fL (80-98); Mean Platelet Volume 10.2 fL (9.4-12.4); Monocytes Absolute Auto 2.2 X10*3/uL (0.1-1.2); Monocytes Percent Auto 11.6 % (2-11); Neutrophils Absolute Auto 14.7 X10*3/uL (2.0-8.3); Neutrophils Percent Auto 77.2 % (45-73); Platelet Count 297 X10*3/uL (160-400); Red Cell Distribution Width 15.2 % (11.0-16.0); SCAN SMEAR FLAG 1; White Blood Count 19.1 X10*3/uL (4.8-10.8)
[2020-10-23 07:42] LABS: Alanine Aminotransferase 31 U/L (0-40); Albumin Level 2.8 g/dL (3.5-5.0); Alkaline Phosphatase 88 U/L (39-117); Anion Gap 14 (12-20); Aspartate Amino Transferase 39 U/L (5-37); Blood Urea Nitrogen 25 mg/dL (9-16); Calcium 7.8 mg/dL (8.4-10.2); Carbon Dioxide 28 mmol/L (22-29); Chloride 92 mmol/L (96-108); Creatinine Clr Calc Pharmacy 162.7; Estimated Glomerular Filt Rate > 60; Glucose Random 127 mg/dL (60-115); Potassium 3.3 mmol/L (3.3-5.1); Sodium 131 mmol/L (135-145); Total Protein 6.4 g/dL (6.5-8.0)
[2020-10-23 08:00] VITALS: BP 163/98; PULSE 98; RESP 17; TEMP 36.8; O2SAT 94
[2020-10-23] MEDS: Enoxaparin Sodium 40 MG/0.4 ML SYRINGE SUBCUT (09:31)
[2020-10-23] MEDS: amLODIPine Besylate 5 MG TABLET PO (09:36)
[2020-10-23] MEDS: PHENobarbitaL 15 MG TABLET PO (09:36)
[2020-10-23] MEDS: lisinopriL 20 MG TABLET PO (09:37)
[2020-10-23] MEDS: ondansetron HCL 4 MG/2 ML VIAL IVPUSH (09:41)
[2020-10-23 09:55] LABS: Lipase 311 U/L (8-78)
--- NOTE | 2020-10-23 11:24 | HO.PM.IMPN ---
Subjective Subjective Date of Service: 10/23/20 Interval History: ongoing abd pain/nausea provoked by clear liquid oral intake Review of Systems Gen: no fever Resp: no sob, no cough CV: no chest, no GUZMÁN, no leg edema GI: N0 n/v, + abd pain Neuro: No confusion Physical Exam Vital Signs: Vital Signs: Last Vital Signs Temp 98.3 F 10/23/20 08:00 Pulse 98 10/23/20 08:00 Resp 17 10/23/20 08:00 BP 163/98 H 10/23/20 08:00 Pulse Ox 94 10/23/20 08:00 Body Mass Index 35.7 General: AO X 3, no acute distress Resp: CTA bilateral CVS: S1,S2,RRR GI: +BS present, minimal abdominal tendernss Skin: No rash Neuro: motor grossly intact Psych: appropriate affect Objective Data Current Medications Generic Name Dose Route Start Last Admin Trade Name Freq PRN Reason Stop Dose Admin Amlodipine Besylate 5 mg 10/19/20 16:20 10/23/20 09:36 Amlodipine Besylate 5 Mg Tablet PO 5 mg DAILY [facility] Administration Protocol Clonidine HCl 0.1 mg 10/20/20 12:35 10/22/20 14:28 Clonidine Hcl 0.1 Mg Tablet PO 0.1 mg Q6H PRN Administration Opiate Withdrawal Protocol Enoxaparin Sodium 40 mg 10/19/20 10:00 10/23/20 09:31 Enoxaparin Sodium 40 Mg/0.4 Ml Syringe SUBCUT 40 mg Q24H [facility]CHO Administration Hydromorphone HCl 2 mg 10/21/20 08:23 10/23/20 09:32 Hydromorphone Hcl 0.5 Mg/0.5 Ml Syringe IVPUSH 2 mg Q3H PRN Administration Pain, Severe (Pain Scale 7-10) Hydroxyzine HCl 25 mg 10/19/20 16:15 10/22/20 22:03 Hydroxyzine Hcl 25 Mg Tablet PO 25 mg Q6H PRN Administration Anxiety Lactated Ringer's 1,000 mls @ 125 mls/hr 10/22/20 08:15 10/23/20 09:41 Lr IVCONT 125 mls/hr .Q8H [facility] Administration Lisinopril 20 mg 10/21/20 09:00 10/23/20 09:37 Lisinopril 20 Mg Tablet PO 20 mg DAILY [facility] Administration Protocol Medication 1 each 10/19/20 09:00 No Benzodiazepines MISCELLANE DAILY [facility] Nicotine Polacrilex 4 mg 10/21/20 22:54 10/21/20 23:40 Nicotine Polacrilex 4 Mg Lozenge BUCCAL 4 mg Q2H PRN Administration Nicotine Cravings Ondansetron HCl 4 mg 10/19/20 18:23 10/23/20 09:41 Ondansetron Hcl 4 Mg/2 Ml Vial IVPUSH 4 mg Q8H PRN Administration Nausea and Vomiting Phenobarbital 15 mg 10/24/20 09:00 Phenobarbital 15 Mg Tablet PO 10/25/20 09:01 DAILY [facility] Sodium Chloride 3 ml 10/19/20 16:00 10/23/20 09:31 0.9 % Sodium Chloride Flush 3 Ml Syringe IVFLUSH Not Given QSHIFT [facility] Labs CBC & Chem 7: 10/23/20 06:53 10/23/20 06:53 Microbiology Microbiology Results: Microbiology 10/19/20 05:46 Blood - Venous Blood Culture - Preliminary No growth after 48 hours. 10/19/20 05:11 Blood - Venous Blood Culture - Preliminary No growth after 48 hours. Assessment and Plan (1) Acute pancreatitis: Status: Acute (2) Alcohol withdrawal: Status: Acute Assessment and Plan: hospital d#5 50yo M with EtOH + opioid abuse admitted for acute pancreatitis + EtOH withdrawal # acute pancreatitis - continue IV fluids, lipase is down, start liquid diet prn IV hydromorphone, GI consultation pend, -WBC has shot to 19K but no fever or other signs of infection # EtOH dependence/withdrawal - continue phenobarbital taper, folate, thiamine - CARE team consultation to encourage abstinence # opioid dependence/withdrawal - prn hydroxyzine + clonidine # steatohepatitis - likely EtOH + obesity # HTN - amlodipine + lisinopril # obesity - weight loss counseled # GERD - continue omeprazole # VTE ppx - LMWH Out of bed, ambulate
[2020-10-23 11:37] LABS: SLIDE REVIEW VERIFIED
[2020-10-23] MEDS: HYDROmorphone HCl 2 MG/ML VIAL IVPUSH (14:10)
--- NOTE | 2020-10-23 14:37 | PC.NURSE ---
Patient walked out into hallway to nurses station and reports that he is leaving now. MD aware and discussed risks of leaving ama. Patient reports he still wishes to leave Patient signed out AMA..
--- NOTE | 2020-10-23 15:01 | MHC.CM.PN ---
PER NURSING PT LEFT AMA, PLAN WAS FOR HOME SELF-CARE.
--- NOTE | 2020-10-23 17:03 | P.DS_ITS ---
DS: Providers Provider Date of Service: 10/23/20 Date of admission: 10/19/20 08:10 Primary care physician: None Physician Consults: 10/20/20 12:49 Consult to Gastroenterology Routine Consulting Provider: Cecilio Mathews Reason for consultation: acute pancreatitis Has provider been notified: No DS: Diagnosis Discharge Diagnosis (1) Acute pancreatitis: Status: Acute (2) Alcohol withdrawal: Status: Acute DS: Medications Discharge Medications Home Medications: Home Medications Medication Instructions Recorded Confirmed albuterol sulfate 2 puff INHALATION Q6H PRN 10/19/20 10/19/20 omeprazole magnesium [Prilosec OTC] PO 10/19/20 DS: Summary Hospital Course Hospital Course: Patient was admitted for acute pancreatitis due to alcohol use and was been managed with IV, IV pain medicine. His pain has been severe and diet was been ad vanced slowly, while I do no think he was ready to be discharged. While walking in the [place] I saw him with his belongings on his way out and stated he was leaving against medical advise to take care of things. I advised him to staty and made him know his condition could get worse and possibly even leave to . He stated he was very comfortable with the decision and proceed to leave without waiting for any instruction or medicine. Time Spent with Patient Time attestation: Total time spent providing and/or coordinating discharge services: Discharge coordination time: Greater than 30 minutes Physical Exam Vital Signs: Vital Signs: Last Vital Signs Temp 98.3 F 10/23/20 08:00 Pulse 98 10/23/20 08:00 Resp 17 10/23/20 08:00 BP 163/98 H 10/23/20 08:00 Pulse Ox 94 10/23/20 08:00 Body Mass Index 35.7 Discharge Plan Discharge Anticipated Discharge Date/Time: 10/23/20 17:11 Patient Disposition: Left Against Medical Advice Referrals: Physician,Jareth [Primary Care Provider] - Discharge Medications: No Action omeprazole magnesium [Prilosec OTC] 20 mg Tablet,Delayed Release (Dr/Ec) PO RF: 0 albuterol sulfate 90 mcg/actuation Hfa Aerosol Inhaler 2 puff INHALATION Q6H PRN (Reason: Shortness Of Breath) RF: 0 Discharge Orders: Discharge Order (Routine); Ordered 10/25/20 Ordered By: [facility] Care Plan Goals: prevent rehospitalization Health Concerns: alcoholism, obesity Plan of Treatment: left AMA, advised to follow up with PCP and stop drinking alcohol and using drugs Discharge Date/Time: 10/23/20 14:45
== END 2020-10-23 14:45 | disposition left against medical advice (07) | DRG 439 ==
LOC: HO.ED 06:02 → HO.EDOVER 08:25 → HO.S3 14:28
PROVIDERS: Family Medicine; Admitting Provider Internal Medicine; Emergency Provider Student in an Organized Health Care Education/Training Program; Visit Provider Internal Medicine
DX: K85.90 Acute pancreatitis without necrosis or infection, unspecified (principal); F10.239 Alcohol dependence with withdrawal, unspecified; F11.20 Opioid dependence, uncomplicated; K21.9 Gastro-esophageal reflux disease without esophagitis; I10 Essential (primary) hypertension; K85.20 Alcohol induced acute pancreatitis without necrosis or infection; E66.9 Obesity, unspecified; Z68.35 Body mass index [BMI] 35.0-35.9, adult; K70.0 Alcoholic fatty liver; Z20.822 Contact with and (suspected) exposure to COVID-19; Z79.899 Other long term (current) drug therapy
CPT/HCPCS: 36415; 74177; 76705; 80048; 80053; 80307; 80320; 81001; 81003; 83605; 83690; 83735; 85025; 85610; 87040; 87635; 93005; 96361; 96374; 96375; 99285; J1170; J1200; J1650; J1885; J2060; J2405; J2560; J3010; Q9967

== ENCOUNTER 2021-10-08 15:46 | Emergency (ER) | payer OTHER, SELFPAY ==
--- NOTE | ~2021-10-08 | XR_ITS ---
EXAMINATION: XR CHEST CLINICAL INFORMATION: Overdose. Rule out pneumonia. COMPARISON: None TECHNIQUE: Frontal view of the chest was obtained. FINDINGS: The cardiac and mediastinal contours are normal. The lung volumes are low. There is subsegmental atelectasis at the lung bases. The lungs are otherwise clear. There is no pleural effusion or pneumothorax. There may be mild degenerative changes of the spine. XR/XR chest 1V IMPRESSION: Low lung volumes and subsegmental atelectasis at the lung bases.
--- NOTE | 2021-10-08 15:54 | ED_ITS ---
HPI - Overdose General Chief Complaint: Overdose Stated Complaint: OVERDOSE,NARCAN GIVEN,RESPONDS TO PAIN Time Seen by Provider: 10/08/21 15:53 Source: patient, EMS and old records reviewed Mode of arrival: ambulatory Limitations: altered mental status History of Present Illness HPI Narrative: This is a 51-year-old male past medical history significant for obstructive sleep apnea, presenting to emergency department with a drug overdose. Patient was [place] lying [place] the ground [place]. He was given 6 mg of Narcan by EMS and the police. With the 6s. Initially when he was found he was 86% on room air. He was put on 15 L via non-rebreather and saturating 95% on room air. Patient is arousable only to painful stimuli not answering questions. When I asked him if he did drugs he said yes but he is not able to elaborate on much more. Unable to get an accurate history due to patient's mental status at this time. Denies SI and HI. complaint: accidental overdose Onset (ago): minute(s) (30) Related Data Home Medications Medication Instructions Recorded Confirmed albuterol sulfate 90 mcg/actuation 2 puff INHALATION Q6H PRN 10/19/20 10/19/20 aerosol inhaler omeprazole magnesium 20 mg PO 10/19/20 tablet,delayed release (Prilosec OTC) Previous Rx's Medication Instructions Recorded naloxone 4 mg/actuation nasal 4 mg INTRANASAL Q2M PRN #1 ea 10/08/21 spray (Narcan) Allergies Allergy/AdvReac Type Severity Reaction Status Date / Time No Known Allergies Allergy Verified 10/19/20 04:55 [No Known Allergies*] Review of Systems Review of Systems: Unable to obtain at this time. Yes Unobtainable due to mental status PMFSH Past Medical History Attestation statement: The following information was validated with the patient. Source: old records reviewed and nursing notes reviewed Social History Social History Household Members: Unknown / Unable to assess Housing: Unknown / Unable to assess Unable to assess alcohol history related to: Refusing to respond Advance Directives: No Advance Directives Information Provided: No service: No Current occupational status: unemployed Physical Exam Vital Signs: Vital Signs: Last Vital Signs Temp 98.4 F 10/08/21 15:58 Pulse 113 H 10/09/21 00:21 Resp 20 10/09/21 00:21 BP 136/85 10/09/21 00:21 Pulse Ox 95 10/09/21 00:21 BMI result Body Mass Index 27.3 Vital signs stable. Appearance: Awakens to painful stimuli. No acute distress.? Head: Normocephalic, atraumatic, no step-offs or deformities Eyes: Pupils equal, round and reactive to light.? Bilateral pupils pinpoint. ENT: Pharynx normal.? Neck: Normal inspection.? Neck supple.? CVS: Rapid rate regular rhythm.? Pulses normal.? Respiratory: No respiratory distress.? Breath sounds normal.? Abdomen: Soft and nontender.? Skin: Skin warm and dry.? Normal skin color.? Normal skin turgor.? Extremities: No lower extremity edema.? No calf ttp. 5/5 strength to bilateral upper and lower extremities Back: No midline tenderness, no C-spine tenderness, full range of motion, no CVA tenderness bilaterally Neuro: Awakens to painful stimuli. CN2 -12 intact Course Reevaluation(s) Reevaluation #1: Upon re-evaluation patient appears much better. He is not answering questions. Denies SI and HI. Reports that he is on Suboxone however due to increased stres s he has been using heroin. He has been snorting the heroin. At this time cranial nerves 2-12 intact. No medical complaints. Patient is drowsy and will continue to sleep. He is on 4 L via nasal cannula appear Time: 17:39 Reevaluation #2: Patient does have an elevated white blood cell count likely reactive to vomiting/nausea after Narcan. Unlikely that this is from infection. Transaminases are slightly elevated likely secondary to alcohol abuse. Patient's BUN slightly elevated however he is tolerating fluids by mouth. Patient is COVID negative. Patient now saturating 93% on room air however he is still drowsy. Patient is requesting detox. At this time patient will be placed in physician observation to allow more time to be evaluated by the behavioral health team. At time observation was started patient, cooperative no acute distress with stable vitals. Will continue to monitor. Time: 01:34 MDM - Overdose MDM Narrative Medical decision making narrative: [id number] This is a 51-year-old male brought in via ambulance for a probable drug overdose. This patient [place] in a park. Skin 6 mg of Narcan. For intranasal, to IM. At this time patient only awake to painful stimuli. Upon physical examination patient sleepy, only responding to painful stimuli. With bilateral pinpoint pupils. Crackles noted to bilateral lower lobes. Regular rate fast rhythm likely sinus tachycardia. Unable to obtain at a thorough neurological examination at this time due to patient's mental status he is not following commands. Patient history and physical exam consistent with opiate overdose. Patient has pinpoint pupils. And had good response to Narcan. Plan at this time is basic labs, imaging. Medical Records Attestation: I reviewed the patient's medical records. Lab Data Attestation: I reviewed the patient's lab results. Result diagrams: 10/08/21 17:51 10/08/21 17:51 Labs: Lab Results 10/08/21 10/08/21 10/08/21 Range/Units 17:51 17:51 17:51 WBC 15.0 H (4.8-10.8) X10*3/uL RBC 4.53 L (4.60-5.80) X10*6/uL Hgb 13.1 L (14.0-18.0) g/dl Hct 40.4 L (42.0-52.0) % MCV 89.2 (80.0-98.0) fL MCH 28.9 (27.0-33.0) pg MCHC 32.4 (31.0-36.0) g/dl RDW 14.3 (11.0-16.0) % Plt Count 218 (160-400) X10*3/uL MPV 10.3 (9.4-12.4) fL Immature Gran % (Auto) 0.4 (0.0-0.4) % Neut % (Auto) 83.9 H (45-73) % Lymph % (Auto) 8.0 L (20-40) % [place] % (Auto) 7.3 (2-11) % Eos % (Auto) 0.1 (0-4) % Baso % (Auto) 0.3 (0-2) % Lymph # (Auto) 1.2 (1.2-4.9) X10*3/uL [place] # (Auto) 1.1 (0.1-1.2) X10*3/uL Eos # (Auto) 0.0 (0.0-0.4) X10*3/uL Baso # (Auto) 0.0 (0.0-0.2) X10*3/uL Abs Immat Gran (auto) 0.06 H (0.00-0.03) X10*3/uL Absolute Neuts (auto) 12.6 H (2.0-8.3) x10*3/uL Absolute Nucleated RBC 0.000 (0.0-0.012) X10*3/uL Nucleated RBC % (auto) 0.0 (0.0-0.2) /100WBC Sodium 141 (135-145) mmol/L Potassium 4.9 D (3.3-5.1) mmol/L Chloride 105 (96-108) mmol/L Carbon Dioxide 25 (22-29) mmol/L Anion Gap 16 (12-20) BUN 23 H (9-16) mg/dL Creatinine 0.81 (0.5-1.4) mg/dL Estim Creat Clear Calc 105.5 Estimated GFR > 60 Random Glucose 96 (60-115) mg/dL Calcium 9.2 D (8.4-10.2) mg/dL Total Bilirubin 0.3 (0.0-1.0) mg/dL AST 148 H (5-37) U/L ALT 102 H (0-40) U/L Alkaline Phosphatase 99 (39-117) U/L Total Protein 9.1 H D (6.5-8.0) g/dL Albumin 4.1 D (3.5-5.0) g/dL Ethyl Alcohol mg/dL COVID-19 ([facility]) Negative (Negative) COVID-19 Clin Com See Note 10/08/21 Range/Units 17:51 WBC (4.8-10.8) X10*3/uL RBC (4.60-5.80) X10*6/uL Hgb (14.0-18.0) g/dl Hct (42.0-52.0) % MCV (80.0-98.0) fL MCH (27.0-33.0) pg MCHC (31.0-36.0) g/dl RDW (11.0-16.0) % Plt Count (160-400) X10*3/uL MPV (9.4-12.4) fL Immature Gran % (Auto) (0.0-0.4) % Neut % (Auto) (45-73) % Lymph % (Auto) (20-40) % [place] % (Auto) (2-11) % Eos % (Auto) (0-4) % Baso % (Auto) (0-2) % Lymph # (Auto) (1.2-4.9) X10*3/uL [place] # (Auto) (0.1-1.2) X10*3/uL Eos # (Auto) (0.0-0.4) X10*3/uL Baso # (Auto) (0.0-0.2) X10*3/uL Abs Immat Gran (auto) (0.00-0.03) X10*3/uL Absolute Neuts (auto) (2.0-8.3) x10*3/uL Absolute Nucleated RBC (0.0-0.012) X10*3/uL Nucleated RBC % (auto) (0.0-0.2) /100WBC Sodium (135-145) mmol/L Potassium (3.3-5.1) mmol/L Chloride (96-108) mmol/L Carbon Dioxide (22-29) mmol/L Anion Gap (12-20) BUN (9-16) mg/dL Creatinine (0.5-1.4) mg/dL Estim Creat Clear Calc Estimated GFR Random Glucose (60-115) mg/dL Calcium (8.4-10.2) mg/dL Total Bilirubin (0.0-1.0) mg/dL AST (5-37) U/L ALT (0-40) U/L Alkaline Phosphatase (39-117) U/L Total Protein (6.5-8.0) g/dL Albumin (3.5-5.0) g/dL Ethyl Alcohol < 10 mg/dL COVID-19 ([facility]) (Negative) COVID-19 Clin Com Critical Care Time Critical Care Time Critical Care Time: No Discharge Plan Discharge Clinical Impression: Drug overdose Patient Disposition: Home, Self-Care Additional Instructions: Take your medications as prescribed. If you were prescribed antibiotics today, it is important that you take your medication to their entirety, do not skip any doses, do not finish them early. Follow-up with your primary care provider this week. Return to the emergency department with new or worsening symptoms. Such as fevers, chills, chest pain, shortness of breath, nausea, vomiting, dizziness, headache, vision changes, lethargy In case of emergency call 911 I have sent Narcan to your pharmacy. Narcan can be life-threatening. If Narcan is use please call 911 and seek further medical evaluation. We offered you detox however he refused. If you change your mind we have given you resources in the area. Prescriptions: New naloxone [Narcan] 4 mg/actuation spray,non-aerosol 4 mg intranasal Q2M PRN (Reason: opioid overdose) Qty: 1 0RF Rx Instructions: spray 1 dose into ONE nostril; alternate nostrils w each dose until help arrives No Action omeprazole magnesium [Prilosec OTC] 20 mg Tablet,Delayed Release (Dr/Ec) PO 0RF albuterol sulfate 90 mcg/actuation Hfa Aerosol Inhaler 2 puff INHALATION Q6H PRN (Reason: Shortness Of Breath) 0RF Referrals: Physician,Unknown J [Primary Care Provider] - 2 days
[2021-10-08 15:58] VITALS: BP 110/68; PULSE 120; RESP 18; TEMP 36.9; O2SAT 90; BMI 27.3
[2021-10-08 16:00] VITALS: O2SAT 89
[2021-10-08 16:39] VITALS: BP 111/70; PULSE 125; RESP 14; O2SAT 96
--- NOTE | 2021-10-08 17:10 | HO.SUDE ---
CARE team met with pt to complete a SUDE. Pt is a 51 year old male who arrived to the ED via ambulance s/p an accidental overdose. He received 6mg of narcan prior to arrival. Pt was agreeable to speaking with this real estate underwriter. He was somnolent and responded to verbal stimuli and gentle shaking of the ED stretcher. He initially denied remembering why he was in the hospital, however he then stated I must have used opiates. He reported that he is on suboxone, which was started when he was in detox at [facility] 3 weeks ago. He discharged home from the program last week and was connected with [facility] in [place] for suboxone. He reported that he has weekly appointments to get his doses. He shared that he had been doing well until he got into an argument with his girlfriend earlier today, and he was upset and used. He reported that he doesn't have any left from what he had purchased this afternoon. Pt declined resources at this time and shared that he doesn't plan on using again. He has his appointment at [facility] tomorrow. This real estate underwriter recommended that he be honest about his use/overdose today to prevent him from being mis-dosed and not having the opportunity for formal counseling from the clinic. He endorsed alcohol use, approx once a week, however per chart review he was admitted to the hospital for acute pancreatitis and alcohol withdrawal in September 2020. This real estate underwriter will check in with pt in a little while to see if he is more alert and oriented and able to fully engage in a SUDE.
[2021-10-08 17:56] LABS: MANUAL DIFF FLAG NO
[2021-10-08 18:03] LABS: Basophils Percent Auto 0.3 % (0-2); Eosinophils Percent Auto 0.1 % (0-4); Hematocrit 40.4 % (42.0-52.0); Hemoglobin 13.1 g/dl (14.0-18.0); Imm Gran Abs Auto 0.06 X10*3/uL (0.00-0.03); Imm Gran Pct Auto 0.4 % (0.0-0.4); Lymphocytes Absolute Auto 1.2 X10*3/uL (1.2-4.9); Mean Corpuscular HGB Conc 32.4 g/dl (31.0-36.0); Mean Corpuscular Hemoglobin 28.9 pg (27.0-33.0); Mean Corpuscular Volume 89.2 fL (80.0-98.0); Mean Platelet Volume 10.3 fL (9.4-12.4); Monocytes Absolute Auto 1.1 X10*3/uL (0.1-1.2); Monocytes Percent Auto 7.3 % (2-11); Neutrophils Absolute Auto 12.6 x10*3/uL (2.0-8.3); Neutrophils Percent Auto 83.9 % (45-73); Platelet Count 218 X10*3/uL (160-400); Red Blood Count 4.53 X10*6/uL (4.60-5.80); Red Cell Distribution Width 14.3 % (11.0-16.0)
[2021-10-08 18:13] LABS: COVID-19 Test Negative (Negative); IDNOW Serial# 16C4AD1C
[2021-10-08 18:18] LABS: Ethanol < 10 mg/dL
[2021-10-08 18:25] LABS: Alanine Aminotransferase 102 U/L (0-40); Albumin Level 4.1 g/dL (3.5-5.0); Alkaline Phosphatase 99 U/L (39-117); Anion Gap 16 (12-20); Aspartate Amino Transferase 148 U/L (5-37); Bilirubin Total 0.3 mg/dL (0.0-1.0); Blood Urea Nitrogen 23 mg/dL (9-16); Calcium 9.2 mg/dL (8.4-10.2); Carbon Dioxide 25 mmol/L (22-29); Chloride 105 mmol/L (96-108); Creatinine Clr Calc Pharmacy 105.5; Estimated Glomerular Filt Rate > 60; Glucose Random 96 mg/dL (60-115); Potassium 4.9 mmol/L (3.3-5.1); Sodium 141 mmol/L (135-145); Total Protein 9.1 g/dL (6.5-8.0)
--- NOTE | 2021-10-08 18:56 | MHC.RECOVSUP ---
? Reason for consult:Recovery Support o Current location: ED-9 o Identified substance use concern:Heorine - Overdose - ? Intervention: o ? Plan: o o Follow up tomorrow o ? Additional information: Patient too impaired to help with interview
[2021-10-08 20:00] VITALS: BP 113/89; PULSE 106; RESP 16; O2SAT 92
[2021-10-08 22:00] VITALS: BP 154/78; PULSE 84; RESP 16; O2SAT 98
[2021-10-08] MEDS: Naloxone HCl Nasal 4 MG SPRAY NOSTRILALT (23:11)
--- NOTE | 2021-10-08 23:12 | PC.NURSE ---
PATIENT DIFFICULT TO WAKE PATIENT O2 SAT IS 89% TO 92% PROVIDER EVALUATING WANTING TO GIVE INTRANASAL NARCAN. GIVEN PATIENT BECOMING MORE ALERT ASKING FOR A SANDWICH AND DRINKS. NO DISTRESS NOTED AT THIS TIME.
--- NOTE | 2021-10-08 23:45 | PC.NURSE ---
PATIENT EATING AND DRINKING OKAYED BY MD NO DISTRESS NOTED. STATING FEELING BETTER, AWAITING REEVALUATION BY PROVIDER AFTER IV FLUIDS FINISH
[2021-10-09 00:21] VITALS: BP 136/85; PULSE 113; RESP 20; O2SAT 95
[2021-10-09 02:12] VITALS: BP 116/70; PULSE 105; RESP 12; O2SAT 92
--- NOTE | 2021-10-09 02:45 | PC.NURSE ---
patient getting up and ambulating to the restroom, denies wanting to speak to detox anymore. requesting to leave and be discharged. denies si/hi. no distress noted. skin is p,d,w. provider notes stating patient denies si and hi and was on observation to take to care team about detox. patient given numbers and resources for detox with discharge paperwork.
--- NOTE | 2021-10-09 03:02 | PC.NURSE ---
patient walking back from the bathroom coming to the desk and asking this rn which room he was supposed to be in, directed patient to his room 9. patient then attempting to get into bed and could not started to sway, decreased responsiveness to verbal. patient guided back to bed with multiple staff members, given 4 of narcan intranasally. patient still having shallow respiration and low 02 sat. patient given 2mg of narcan iv. patient becoming very alert, wondering why so many people were in his room. asking for a beverage. denied using substances in the bathroom, patient stating that staff was lying about giving him narcan. patient shown the empty medication and he shrugged. patient will no longer be discharged at this time and will contniue to be observed due to substance use.
[2021-10-09 04:00] VITALS: BP 146/84; PULSE 98; RESP 14; O2SAT 96
[2021-10-09 04:27] VITALS: BP 105/63; PULSE 96; RESP 12; O2SAT 97
[2021-10-09] MEDS: Naloxone HCl Nasal TAKE HOME 4 MG SPRAY NOSTRILALT (04:57)
== END 2021-10-09 04:59 | disposition home or self-care (01) ==
LOC: HO.ED 17:27
PROVIDERS: Physician Assistant; Emergency Provider Emergency Medicine
DX: T40.1X1A Poisoning by heroin, accidental (unintentional), initial encounter (principal); R40.4 Transient alteration of awareness; Y92.830 Public park as the place of occurrence of the external cause; T40.1X Poisoning by and adverse effect of heroin; R41.82 Altered mental status, unspecified; Y92.238 Other place in hospital as the place of occurrence of the external cause; Z20.822 Contact with and (suspected) exposure to COVID-19; F11.20 Opioid dependence, uncomplicated
CPT/HCPCS: 71045; 80053; 82077; 85025; 87635; 99284

== ENCOUNTER 2022-06-10 08:26 | Emergency (ER) | payer OTHER, SELFPAY ==
[2022-06-10 08:40] VITALS: BP 121/78; PULSE 76; O2SAT 95
[2022-06-10 08:42] VITALS: BP 135/82; PULSE 79; RESP 20; O2SAT 100
[2022-06-10 08:46] VITALS: BP 135/82; PULSE 79; RESP 20; O2SAT 100; BMI 26.6
--- NOTE | 2022-06-10 08:50 | ED.GENADULT ---
HPI - General Adult General Chief complaint: Overdose Stated complaint: FOUND OUTSIDE, UNRESP,NARCSTEVEN VANEGAS W/GOOD RES Time Seen by Provider: 06/10/22 08:50 Source: patient and EMS Mode of arrival: EMS Limitations: no limitations History of Present Illness HPI narrative: Patient is a 51 year old assigned male at with a history of pancreatitis and NIEVES presenting to the emergency department today after an opiate overdose. Patient states that he does not need to be here and does not want to be here. EMS states that the patient was found face down on the side walk and was given 2mg of Narcan and immediately regained consciousness. Patient denies any dizziness, lightheadedness, abdominal pain, nausea, vomiting, fever, chills, blurry vision, double vision, loss of vision, chest pain, difficulty breathing, shortness of breath, back pain, night sweats, pain with urination, increased urinary frequency, increased urinary urgency, blood in his urine or stool, bowel incontinence, bladder incontinence, bowel retention, bladder retention, or any other complaints at this time. Relieving factors: none Exacerbating factors: none Associated symptoms: denies other symptoms Treatments prior to arrival: none Related Data Home Medications Medication Instructions Recorded Confirmed albuterol sulfate 90 mcg/actuation 2 puff inhalation Q6H PRN 10/19/20 10/19/20 aerosol inhaler Shortness Of Breath omeprazole magnesium 20 mg PO 10/19/20 tablet,delayed release (Prilosec OTC) Previous Rx's Medication Instructions Recorded naloxone 4 mg/actuation nasal 4 mg intranasal Q2M PRN opioid 10/08/21 spray (Narcan) overdose #1 ea Allergies Allergy/AdvReac Type Severity Reaction Status Date / Time No Known Allergies Allergy Verified 06/10/22 08:46 [No Known Allergies*] Review of Systems Constitutional: Constitutional: Reports no additional constitutional complaints, Denies chills, Denies fever(s) and Denies night sweats Eyes: Eyes: Reports no additional eye complaints, Denies blurry vision, Denies change in vision, Denies diplopia, Denies eye discharge, Denies loss of vision and Denies eye pain ENT: Denies dizziness Cardiovascular: Cardiovascular: Reports no additional cardiovascular complaints, Denies chest pain, Denies lightheadedness, Denies Loss of Consciousness and Denies dyspnea Respiratory: Respiratory: Reports no additional respiratory complaints and Denies dyspnea Gastrointestinal: Gastrointestinal: Reports no additional gastrointestinal complaints, Denies abdominal pain, Denies melena, Denies hematochezia, Denies change in bowel habits and Denies change in stool character Genitourinary: Genitourinary: Reports no additional male genitourinary complaints, Denies hematuria, Denies oliguria, Denies difficulty urinating, Denies dysuria, Denies urinary frequency, Denies urinary hesitancy, Denies urinary incontinence and Denies urinary urgency Musculoskeletal: Musculoskeletal: Reports no additional musculoskeletal complaints, Denies numbness and Denies tingling Neurologic: Denies dizziness, Denies loss of vision, Denies numbness and Denies tingling Psychiatric: Psychiatric: Reports no additional psychiatric complaints Endocrine: Endocrine: Reports no additional endocrine complaints Hematologic/Lymphatic: Hematologic/Lymphatic: Reports no additional hematologic/lymphatic complaints Allergic/Immunologic: Allergic/Immunologic: Reports no additional allergic/immunologic complaints [facility] Past Medical History Attestation statement: The following information was validated with the patient. Source: old records reviewed Medical History Cirrhosis Opiate abuse, continuous Pancreatitis Social History Social History Household Members: Unknown / Unable to assess Housing: Unknown / Unable to assess Unable to assess alcohol history related to: Refusing to respond Advance Directives: No Advance Directives Information Provided: No service: No Current occupational status: unemployed Physical Exam ED Vital Signs: Vital Signs - 24 hr 06/10/22 08:42 06/10/22 08:46 Pulse Rate 79 79 Respiratory Rate 20 20 Blood Pressure 135/82 135/82 Pulse Oximetry 100 100 Oxygen Delivery Method Room Air Room Air BMI result Body Mass Index 26.6 Const General: cooperative, no acute distress, alert and awake Nutritional Appearance: well nourished Orientation/consciousness: patient oriented x3 Limitations: no limitations HENMT Head: Yes normal to inspection and Yes atraumatic Ears: hearing grossly normal bilaterally and external ears normal General nose exam: Normal external nose present, no nasal discharge noted and no epistaxis Face and sinus: Yes normal facial exam, No abrasion and No laceration Mouth: Normal oral and palatal mucosa present, no drooling and no muffled voice Eyes General: appearance normal, both eyes and all related structures Periorbital: periorbital findings normal Eyelids: Yes eyelids normal Conjunctivae: conjunctivae normal Pupils: Equal, round and reactive pupils present EOM: EOMs intact bilaterally Neck Neck: Yes normal visual inspection, Yes full ROM and Yes no lymphadenopathy Chest Chest palpation & inspection: normal inspection of the chest Resp Effort & Inspection: normal respiratory effort and able to speak in complete sentences Auscultation: clear to auscultation bilaterally Cardio Rate: regular rate Rhythm: regular rhythm GI Inspection: Yes normal to inspection Palpation (GI): Soft to palpation, not firm, nontender, no guarding and not rigid Neuro General: patient oriented x3 and moves all extremities Cranial nerves: Yes Equal, round and reactive pupils present Cognition (Neuro): normal cognition Motor exam (neuro): 5/5 motor strength present throughout Sensory Exam: Normal double simultaneous stimulation for sensation Coordination: [id number] test normal Extrem General: Yes normal to inspection, Yes full ROM and Yes capillary refill normal Psych Appearance: grossly normal Mental Status: mental status grossly normal Affect: normal affect Attitude: cooperative Thought process: Normal thought process present Thought content: Normal thought content present Insight: Good insight present (Psych) Medications Administered Discontinued Medications Generic Name Dose Route Start Last Admin Trade Name Freq PRN Reason Stop Dose Admin Naloxone HCl 4 mg 06/10/22 08:51 06/10/22 09:04 Naloxone Hcl Nasal Take Home 4 Mg Isabel NOSTRILALT 06/10/22 08:52 4 mg ONCE ONE Administration Medical Decision Making MDM Narrative Medical decision making narrative: Patient is a 51 year old assigned male at with a history of NIEVES and pancreatitis presenting to the emergency department today after receiving narcan. Patient's physical exam was unremarkable. Patient refused all blood work, imaging, and observation. Patient was adamant he wanted to leave. I explained my physical exam findings to the patient. I answered all questions asked by the patient. Patient agreed to accepting the take home narcan. Patient declined speaking to anyone from the recovery or CARE team. I stressed the importance of the patient taking his medication as prescribed. I stressed the importance of the patient following up with his primary care provider. I stressed the importance of the patient returning to the emergency department immediately if his symptoms were to worsen or if he were to develop any dizziness, shortness of breath, difficulty breathing, chest pain, blurry vision, loss of vision, nausea, vomiting, abdominal pain, fever, chills, back pain, or any other complaints. Patient verbalized agreement and understanding with this treatment plan and discharge. Medical Records Medical records reviewed: Yes I reviewed the patient's medical records. Discharge Plan Discharge Clinical Impression: Drug overdose Patient Disposition: Home, Self-Care Instructions: Adult Overdose (ED) Additional Instructions: Illicit drugs are bad for your health, please stop using illicit drugs. Follow up with your primary care provider. Return to the emergency department immediately if your symptoms worsen or if you develop any dizziness, shortness of breath, difficulty breathing, chest pain, blurry vision, loss of vision, nausea, vomiting, abdominal pain, fever, chills, back pain, or any other complaints. Prescriptions: No Action omeprazole magnesium [Prilosec OTC] 20 mg Tablet,Delayed Release (Dr/Ec) PO albuterol sulfate 90 mcg/actuation Hfa Aerosol Inhaler 2 puff INHALATION Q6H PRN (Reason: Shortness Of Breath) naloxone [Narcan] 4 mg/actuation spray,non-aerosol 4 mg intranasal Q2M PRN (Reason: opioid overdose) Qty: 1 0RF Rx Instructions: spray 1 dose into ONE nostril; alternate nostrils w each dose until help arrives Referrals: [facility] Family Medicine [Provider Group] (Call to establish and follow up with a primary care provider. If you already have a primary care provider, please follow up with them. ) [facility] Primary CareSammy [Provider Group] (Call to establish and follow up with a primary care provider. If you already have a primary care provider, please follow up with them. ) [facility] Primary CareSaira [Provider Group] (Call to establish and follow up with a primary care provider. If you already have a primary care provider, please follow up with them. ) Interventions: ED Discharge Assessment Last Done: 06/10/22 09:06 Discharge Date/Time: 06/10/22 09:06 Print Language: Maltese
--- NOTE | 2022-06-10 08:50 | PC.NURSE ---
pt a&ox3 at this time, pt standing at bedside argumentative and wanting to leave, pt was told the provider would be over to see him momentarily
[2022-06-10] MEDS: Naloxone HCl Nasal TAKE HOME 4 MG SPRAY NOSTRILALT (09:04)
--- NOTE | 2022-06-10 09:04 | PC.NURSE ---
pt was asked to stay to be watched for 1 hr, pt was exit seeking, charge ran after patient to give him the narcan as well as have him sign discharge papers
== END 2022-06-10 09:06 | disposition home or self-care (01) ==
LOC: HO.ED 08:55
PROVIDERS: Emergency Provider Emergency Medicine Emergency Medical Services
DX: T40.2X1A Poisoning by other opioids, accidental (unintentional), initial encounter (principal); R40.4 Transient alteration of awareness; Y92.480 Sidewalk as the place of occurrence of the external cause; F11.10 Opioid abuse, uncomplicated
CPT/HCPCS: 99283